=== PATIENT | male | born 1985 | race Caucasian/White ===

== ENCOUNTER 2016-12-22 22:35 | Emergency (ER) | payer OTHER ==
[~2016-12-22] VITALS: Ht 175.3 cm; Wt 78.7 kg
[2016-12-22 23:47] LABS: HEMATOCRIT 45.9 % (39.2-51.8); HEMOGLOBIN 15.5 g/dL (13.7-18.0); WHITE BLOOD COUNT 6.4 x10^3/uL (3.4-10)
[2016-12-22 23:49] LABS: ASPARTATE AMINO TRANSFERASE 25 U/L (15-37); BLOOD UREA NITROGEN 7 mg/dL (7-18)
[2016-12-22 23:55] LABS: IS PT STATUS REG ER OR PRE ER? YES
[2016-12-23 00:07] VITALS: BP 128/76
== END 2016-12-23 00:48 | disposition home or self-care (01) ==
LOC: ED 12-23 00:42
DX: R07.89 Other chest pain (principal); K59.00 Constipation, unspecified; Z88.0 Allergy status to penicillin
CPT/HCPCS: 36415; 74022; 80053; 84484; 85025; 93005; 99285